=== PATIENT | female | born 1990 | race Caucasian/White ===

== ENCOUNTER 2022-09-30 22:54 | Emergency (ER) | payer MEDICARE, MEDICAID, SELFPAY ==
--- NOTE | ~2022-09-30 | US_ITS ---
EXAMINATION: US OBSTETRICAL ULTRASOUND CLINICAL INFORMATION: . Nausea, vomiting and abdominal pain. COMPARISON: None available. LMP: 08/16/2022. Gestational age by maternal dates is 6 weeks 4 days. Estimated date of delivery by maternal dates is 05/23/2023. TECHNIQUE: Transabdominal ultrasound performed. FINDINGS: There is a single intrauterine gestational sac with visible yolk sac, embryo/fetus, and cardiac activity. There is no significant subchorionic hemorrhage or hematoma. HR: 152 beats per minute. CRL (crown rump length): 1.09 cm (7 weeks and 2 days +/- 4 days). QUINN (estimated date of delivery): 05/18/2023 +/- 4 days. MATERNAL ADNEXA: The right maternal ovary measures 2.8 x 1.5 x 1.6 cm. The left maternal ovary measures 2.9 x 1.8 x 2.0 cm. There is no significant maternal adnexal mass. No maternal pelvic ascites. US/US OB <= 14 weeks fetus IMPRESSION: 1. Single intrauterine gestation with ultrasound gestational age of 7 weeks and 2 days +/- 4 days. 2. Estimated date of delivery is 05/18/2023 +/- 4 days. 3. No maternal adnexal mass or pelvic ascites.
[2022-09-30 23:00] VITALS: BP 106/45; BP 134/78; PULSE 75; PULSE 91; RESP 19; TEMP 36.9; O2SAT 99; BMI 39.1
[2022-09-30 23:35] LABS: MANUAL DIFF FLAG NO
[2022-09-30 23:36] LABS: Basophils Percent Auto 0.3 % (0-2); Eosinophils Absolute Auto 0.1 X10*3/uL (0.0-0.4); Eosinophils Percent Auto 0.6 % (0-4); Hematocrit 42.3 % (37.0-47.0); Hemoglobin 14.1 g/dl (12.0-16.0); Imm Gran Abs Auto 0.06 X10*3/uL (0.00-0.03); Imm Gran Pct Auto 0.4 % (0.0-0.4); Lymphocytes Absolute Auto 1.7 X10*3/uL (1.2-4.9); Lymphocytes Percent Auto 12.3 % (20-40); Mean Corpuscular HGB Conc 33.3 g/dl (31.0-35.0); Mean Corpuscular Hemoglobin 27.1 pg (27.0-33.0); Mean Corpuscular Volume 81.2 fL (80.0-98.0); Mean Platelet Volume 8.8 fL (9.4-12.3); Monocytes Absolute Auto 0.6 X10*3/uL (0.1-1.2); Monocytes Percent Auto 4.3 % (2-11); Neutrophils Absolute Auto 11.4 x10*3/uL (2.0-8.3); Neutrophils Percent Auto 82.1 % (45-73); Platelet Count 370 X10*3/uL (160-400); Red Blood Count 5.21 X10*6/uL (4.20-5.50); Red Cell Distribution Width 14.1 % (11.0-16.0); White Blood Count 13.9 X10*3/uL (4.8-10.8)
[2022-10-01 00:01] LABS: Alanine Aminotransferase 14 U/L (0-31); Albumin Level 4.1 g/dL (3.5-5.0); Alkaline Phosphatase 104 U/L (39-117); Anion Gap 16 (12-20); Aspartate Amino Transferase 15 U/L (5-31); Bilirubin Total 0.4 mg/dL (0.0-1.0); Blood Urea Nitrogen 8 mg/dL (9-16); Calcium 9.8 mg/dL (8.4-10.2); Carbon Dioxide 17 mmol/L (22-29); Chloride 106 mmol/L (96-108); Creatinine Clr Calc Pharmacy 134.2; Estimated Glomerular Filt Rate > 60; Glucose Random 106 mg/dL (60-115); Potassium 3.9 mmol/L (3.3-5.1); Sodium 135 mmol/L (135-145); Total Protein 7.7 g/dL (6.5-8.0)
[2022-10-01] MEDS: ondansetron HCL 4 MG/2 ML VIAL IVPUSH (00:23)
[2022-10-01] MEDS: 0.9 % Sodium Chloride 1,000 ML 999 ML IV ×2 (00:26→00:28)
--- NOTE | 2022-10-01 00:28 | ED.NAVMDI ---
HPI - Nausea/Vomiting/Diarrhea General Chief complaint: Nausea/Vomiting/Diarrhea Stated complaint: abd pain, headache, vomiting, per ems Time Seen by Provider: 09/30/22 23:05 History of Present Illness HPI Narrative: Patient is a 32-year-old female presents today approximately 5 weeks . Patient took a home test was positive. Had nausea vomiting unable to keep down fluids has abdominal cramping. Patient claims this is her 5th the 1st 4 went well. Patient denies any vaginal bleeding. She is from home. No care. No cough no congestion or upper respiratory symptoms. No pain on urination. Related Data Previous Rx's Medication Instructions Recorded ondansetron 4 mg disintegrating 4 mg PO TID PRN nausea and 10/01/22 tablet vomiting 5 days #10 tabs Allergies Allergy/AdvReac Type Severity Reaction Status Date / Time No Known Allergies Allergy Verified 10/01/22 00:02 Review of Systems Review of Systems: Positive abdominal pain Yes all other systems are reviewed and are negative [facility] Past Medical History Attestation statement: The following information was validated with the patient. Social History Social History Advance Directives: No Advance Directives Information Provided: No Physical Exam Vital Signs: Vital Signs: Last Vital Signs Temp 98.5 F 09/30/22 23:00 Pulse 75 09/30/22 23:00 Resp 19 09/30/22 23:00 BP 106/45 L 09/30/22 23:00 Pulse Ox 99 09/30/22 23:00 O2 Del Method Room Air 09/30/22 23:00 BMI result Body Mass Index 39.1 Appearance: Alert. Oriented X3. No acute distress. Eyes: Pupils equal, round and reactive to light. ENT: Pharynx normal. Neck: Normal inspection. Neck supple. No lymph nodes noted. No crepitus CVS: Normal heart rate and rhythm. Pulses normal. Normal S1 and S2 Respiratory: No respiratory distress. Breath sounds normal. No Wheezing. No rales Abdomen: Soft and nontender. No rigidity. No distention. good BS x4 Skin: Skin warm and dry. Normal skin color. Normal skin turgor. Extremities: No lower extremity edema. Neurovascular intact to all extremities. No Lacerations. No Rash Neuro: Oriented X 3. No motor deficit. No sensory deficit. Moving all extermities. No slurred speech Medications Administered Discontinued Medications Generic Name Dose Route Start Last Admin Trade Name Radha PRN Reason Stop Dose Admin Sodium Chloride 1,000 mls @ 999 mls/hr 10/01/22 00:15 10/01/22 00:26 Ns IV 10/01/22 01:15 999 mls/hr .Q1H1M DEVANTE Administration Sodium Chloride 1,000 mls @ 999 mls/hr 10/01/22 00:30 10/01/22 00:28 Ns IV 10/01/22 01:30 999 mls/hr .Q1H1M DEVANTE Administration Ondansetron HCl 4 mg 10/01/22 00:02 10/01/22 00:23 Ondansetron Hcl 4 Mg/2 Ml Vial IVPUSH 10/01/22 00:03 4 mg ONCE ONE Administration Medical Decision Making Medical Decision Making [facility] Narrative: presents today with having abdominal pain nausea vomiting unable to tolerate fluids last menstrual period about 5 weeks ago. Patient's blood type came back O-positive. No ABO incompatibility. Patient's old records here reviewed there is no old documentation noted. Patient beta hCG came back greater than 70,000. An ultrasound was ordered to rule out the possibility of ectopic. Patient has extreme nausea vomiting. The risk of dehydration greater than the risk of Zofran. This was explained to patient. Zofran and IV fluid was given. Will monitor carefully. After dose of Zofran and IV fluids patient's symptom actually improved dramatically. Awaiting ultrasound at this point Ultrasound by my interpretation shows an intrauterine . Approximately 7 weeks. Awaiting final reading from Radiology. Differential Diagnosis Differential Diagnoses: The differential diagnosis associated with the presentation includes Ectopic , hyperemesis gravidarum, UTI Admission/Observation Consideration of admission/observation: Escalation of care including admission/observation considered Symptoms seems to be improving if ultrasound is negative UA negative patient most likely can go home Lab Data [facility] Lab Attestation statement: I reviewed the patient's lab results. 09/30/22 23:31 09/30/22 23:31 Labs: Lab Results 09/30/22 09/30/22 09/30/22 Range/Units 23:31 23:31 23:31 WBC 13.9 H (4.8-10.8) X10*3/uL RBC 5.21 (4.20-5.50) X10*6/uL Hgb 14.1 (12.0-16.0) g/dl Hct 42.3 (37.0-47.0) % MCV 81.2 (80.0-98.0) fL MCH 27.1 (27.0-33.0) pg MCHC 33.3 (31.0-35.0) g/dl RDW 14.1 (11.0-16.0) % Plt Count 370 (160-400) X10*3/uL MPV 8.8 L (9.4-12.3) fL Immature Gran % (Auto) 0.4 (0.0-0.4) % Neut % (Auto) 82.1 H (45-73) % Lymph % (Auto) 12.3 L (20-40) % [place] % (Auto) 4.3 (2-11) % Eos % (Auto) 0.6 (0-4) % Baso % (Auto) 0.3 (0-2) % Lymph # (Auto) 1.7 (1.2-4.9) X10*3/uL [place] # (Auto) 0.6 (0.1-1.2) X10*3/uL Eos # (Auto) 0.1 (0.0-0.4) X10*3/uL Baso # (Auto) 0.0 (0.0-0.2) X10*3/uL Abs Immat Gran (auto) 0.06 H (0.00-0.03) X10*3/uL Absolute Neuts (auto) 11.4 H (2.0-8.3) x10*3/uL Absolute Nucleated RBC 0.000 (0.0-0.012) X10*3/uL Nucleated RBC % (auto) 0.0 (0.0-0.2) /100WBC Sodium 135 (135-145) mmol/L Potassium 3.9 (3.3-5.1) mmol/L Chloride 106 (96-108) mmol/L Carbon Dioxide 17 L (22-29) mmol/L Anion Gap 16 (12-20) BUN 8 L (9-16) mg/dL Creatinine 0.66 (0.5-1.4) mg/dL Estim Creat Clear Calc 134.2 Estimated GFR > 60 Random Glucose 106 (60-115) mg/dL Calcium 9.8 (8.4-10.2) mg/dL Total Bilirubin 0.4 (0.0-1.0) mg/dL AST 15 (5-31) U/L ALT 14 (0-31) U/L Alkaline Phosphatase 104 (39-117) U/L Total Protein 7.7 (6.5-8.0) g/dL Albumin 4.1 (3.5-5.0) g/dL Beta HCG, Quant 74578 mIU/mL Blood Type O Positive Discharge Plan Discharge Clinical Impression: Hyperemesis arising during Patient Disposition: Still a Patient Instructions: Hyperemesis Gravidarum (ED) Prescriptions: New ondansetron 4 mg tablet,disintegrating 4 mg PO TID PRN (Reason: nausea and vomiting) 5 Days Qty: 10 0RF
[2022-10-01 03:08] VITALS: BP 103/62; PULSE 73; RESP 17; TEMP 36.7; O2SAT 94
[2022-10-01 05:33] VITALS: BP 115/55; PULSE 64; RESP 18; O2SAT 97
== END 2022-10-01 05:40 | disposition home or self-care (01) ==
PROVIDERS: Emergency Provider Emergency Medicine Emergency Medical Services
DX: O26.91 Pregnancy related conditions, unspecified, first trimester (principal); R11.2 Nausea with vomiting, unspecified; R10.13 Epigastric pain; R19.7 Diarrhea, unspecified; Z3A.01 Less than 8 weeks gestation of pregnancy; Z79.899 Other long term (current) drug therapy
CPT/HCPCS: 36415; 76801; 80053; 84702; 85025; 86900; 86901; 96361; 96374; 99284; J2405

== ENCOUNTER 2022-10-05 07:54 | Emergency (ER) | payer MEDICARE, MEDICAID, SELFPAY ==
--- NOTE | ~2022-10-05 | CT_ITS ---
Unenhanced CT of the head and cervical spine, 10/06/2022. CT/CT cervical spine wo IV con IMPRESSION: 8 week patient status post fall/head trauma, question seizure TECHNIQUE: Continuous helical imaging obtained through the head and cervical spine without IV contrast. Reconstructed images performed in the coronal and sagittal planes. This CT examination was performed using dose optimization techniques as appropriate, variously including the following: *Automated exposure control *Adjustment of mA and/or kV according to patient size (this includes techniques or standardized protocols for targeted exams where dose is matched to indication/reason for exam; i.e. extremities or head) *Use of iterative reconstruction technique FINDINGS: Head: Intracranial structures are normal in appearance. Pierson-white matter differentiation is preserved. No intracranial hemorrhage, extra-axial fluid collections, cranial fractures or soft tissue hematomas are identified. Bilateral frontal, ethmoid annual, sphenoid and maxillary mucosal thickening seen. Right inferior nasal turbinate is thickened. Mastoids are clear. Intraorbital structures are unremarkable. Cervical spine: Slight cervical lordotic reversal. Vertebral body and disc spaces are preserved. Trace anterolisthesis C4 on C5 No fracture or subluxation. No spinal or neuroforaminal stenoses. Soft tissues are unremarkable with no hematomas. No pathologic lymphadenopathy. Unremarkable thyroid. Clear lung apices. IMPRESSION: No acute intrathoracic cranial pathology status post trauma. Mild cervical lordotic reversal, question spasm. No acute posttraumatic cervical spine pathology. Pansinusitis.
--- NOTE | ~2022-10-05 | US_ITS ---
EXAMINATION: US OBSTETRICAL ULTRASOUND CLINICAL INFORMATION: Abdominal pain and seizure, unknown trauma COMPARISON: 10/01/2022 LMP: 08/16/2022. Gestational age by maternal dates is 7 weeks 1 day. Estimated date of delivery by maternal dates is 05/23/2023. TECHNIQUE: Transabdominal imaging performed. FINDINGS: There is a single intrauterine gestational sac with visible yolk sac, embryo/fetus, and cardiac activity. There is no significant subchorionic hemorrhage or hematoma. HR: 147 beats per minute. CRL (crown rump length): 1.55 cm QUNIN (estimated date of delivery): 26 +/- 4 days. MATERNAL ADNEXA: The right maternal ovary measures 1.8 x 1.5 x 1.5 cm. Previously 2.8 x 1.5 0.6 cm. The left maternal ovary measures 2.7 x 1.3 x 1.8 cm. Previously 2.9 x 1.8 x 2.0 cm. There is no significant maternal adnexal mass. No maternal pelvic ascites. US/US OB <= 14 weeks fetus IMPRESSION: 1. Single intrauterine gestation with ultrasound gestational age of 8 weeks 0 days +/- 4 days. 2. Estimated date of delivery is 05/17/2023 +/- 4 days. 3. No maternal adnexal mass or pelvic ascites.
--- NOTE | ~2022-10-05 | CT_ITS ---
Unenhanced CT of the head and cervical spine, 10/06/2022. CT/CT head/brain wo IV con IMPRESSION: 8 week patient status post fall/head trauma, question seizure TECHNIQUE: Continuous helical imaging obtained through the head and cervical spine without IV contrast. Reconstructed images performed in the coronal and sagittal planes. This CT examination was performed using dose optimization techniques as appropriate, variously including the following: *Automated exposure control *Adjustment of mA and/or kV according to patient size (this includes techniques or standardized protocols for targeted exams where dose is matched to indication/reason for exam; i.e. extremities or head) *Use of iterative reconstruction technique FINDINGS: Head: Intracranial structures are normal in appearance. Pierson-white matter differentiation is preserved. No intracranial hemorrhage, extra-axial fluid collections, cranial fractures or soft tissue hematomas are identified. Bilateral frontal, ethmoid annual, sphenoid and maxillary mucosal thickening seen. Right inferior nasal turbinate is thickened. Mastoids are clear. Intraorbital structures are unremarkable. Cervical spine: Slight cervical lordotic reversal. Vertebral body and disc spaces are preserved. Trace anterolisthesis C4 on C5 No fracture or subluxation. No spinal or neuroforaminal stenoses. Soft tissues are unremarkable with no hematomas. No pathologic lymphadenopathy. Unremarkable thyroid. Clear lung apices. IMPRESSION: No acute intrathoracic cranial pathology status post trauma. Mild cervical lordotic reversal, question spasm. No acute posttraumatic cervical spine pathology. Pansinusitis.
[2022-10-05 08:02] VITALS: BP 107/59; PULSE 82; RESP 20; TEMP 36.7; O2SAT 95
[2022-10-05 08:04] VITALS: BP 109/57; BP 114/78; PULSE 67; PULSE 90; RESP 16; TEMP 36.7; O2SAT 100; O2SAT 97; BMI 40.0
--- NOTE | 2022-10-05 08:13 | ED_ITS ---
HPI - Seizure General Chief Complaint: Seizure Stated Complaint: Seizure Time Seen by Provider: 10/05/22 08:03 Source: patient, RN notes reviewed and old records reviewed History of Present Illness HPI Narrative: 32-year-old female with a past medical history of seizures on Keppra, at about 7.5 weeks gestation presenting to the ED complaining of suspected seizure this morning while in bed. States has been unable to tolerate her Keppra secondary to nausea over the past 2-3 days, woke up this morning feeling like she had a seizure also with noted urinary incontinence and tongue biting. Patient reports headache, abrasion to right eye and abdominal pain. Has not yet had care, 1st OB appointment in October. Denies vision change/ loss, vomiting/ diarrhea, vaginal bleeding / discharge, CP/SOB, neck/back pain MD complaint: seizure Related Data Previous Rx's Medication Instructions Recorded ondansetron 4 mg disintegrating 4 mg PO TID PRN nausea and 10/01/22 tablet vomiting 5 days #10 tabs amoxicillin 500 mg capsule 500 mg PO Q8H 7 days #21 caps 10/05/22 doxylamine succinate 25 mg tablet 25 mg PO BEDTIME PRN nausea and 10/05/22 vomiting #14 tabs pyridoxine (vitamin B6) 25 mg 25 mg PO TID PRN nausea and 10/05/22 tablet vomiting #20 tabs Allergies Allergy/AdvReac Type Severity Reaction Status Date / Time No Known Allergies Allergy Verified 10/01/22 00:02 Review of Systems Review of Systems: Constitutional: No Fever, No Chills, No Fatigue, No Malaise ENT/Mouth: +tongue biting, No Ear Pain, No Nasal Congestion,No sore throat, No Rhinorrhea, No Swallowing Difficulty Eyes: + Eye Pain, +Swelling, No Redness, No Foreign Body, No Discharge, No Vision Changes Cardiovascular: No Chest Pain, No SOB, No Edema, No Palpitations Respiratory: No Cough, No Sputum, No Dyspnea Gastrointestinal: + Nausea, No Vomiting, No Diarrhea, No Constipation, + Abdominal pain Genitourinary: No vaginal d/c, No irregular bleeding, No Dysuria, No Urinary Frequency, No Hematuria, +Urinary Incontinence, No Flank Pain Musculoskeletal: No joint pain, No Myalgias, No Joint Swelling Skin: No Skin Lesions, No rash Neuro: No Weakness, No Loss of Consciousness, No Dizziness, + Headache Yes all other systems are reviewed and are negative Constitutional: Constitutional: Reports as per HPI Neurologic: Denies Abnormal speech present [facility] Past Medical History Attestation statement: The following information was validated with the patient. Source: old records reviewed Social History Social History Alcohol intake: never Substance Use Type: Marijuana Physical Exam Vital Signs: Vital Signs: Last Vital Signs Temp 98.1 F 10/05/22 08:04 Pulse 67 10/05/22 08:04 Resp 16 10/05/22 08:04 BP 109/57 L 10/05/22 08:04 Pulse Ox 97 10/05/22 08:04 O2 Del Method Room Air 10/05/22 08:04 BMI result Body Mass Index 40.0 Const: General: cooperative, healthy appearing, no acute distress and alert Orientation/consciousness: patient oriented x3 Limitations: no limitations HEENT: Head: Yes normal to inspection and Yes atraumatic Ears: hearing grossly normal bilaterally General nose exam: Normal external nose present Face and sinus: Yes normal facial exam Throat: Yes posterior oropharynx normal and Yes uvula midline Eyes: Other: + right upper and lower eyelid swelling with superficial abrasions and slight ecchymosis. No laceration. No evidence of globe rupture. EOMs intact without entrapment or discomfort. No palpable step-off General: appearance normal, both eyes and all related structures Pupils: Equal, round and reactive pupils present EOM: EOMs intact bilaterally Neck: Neck: Yes normal visual inspection and Yes no meningeal signs Resp: Effort & Inspection: normal respiratory effort and no respiratory distress Auscultation: clear to auscultation bilaterally Cardio: Rate: regular rate Heart sounds: S1 normal heart sound present and S2 normal heart sound present GI: Inspection: Yes normal to inspection Palpation (GI): Soft to palpation, Tenderness to palpation present (GI) ( diffusely, no rebound or guarding), no guarding and not rigid : General: Yes no CVA tenderness Back/Spine/Pelvis: Other: No midline cervical/thoracic/lumbar spinous tenderness/step-off or deformity Back: no CVA tenderness Skin: Rashes: no rashes Wounds: no wounds Neuro: General: patient oriented x3, tone normal, moves all extremities, no meningeal signs, no focal motor deficits and CN's II-XI intact bilaterally Cranial nerves: Yes CN's II-XII intact bilaterally and Yes Equal, round and reactive pupils present Cognition (Neuro): normal cognition Speech: No Abnormal speech present Gait exam (Neuro): Normal gait present Motor exam (neuro): 5/5 motor strength present throughout and no tremor noted Extrem: General: Yes normal to inspection Course Course Course Narrative: -Consulted OBGYN Dr. Mcrae about Keppra as is category C in , risk of congenital anomalies exists however is low. Risks discussed with patient, patient admits she was on Keppra for previous . Will consult Neurology for further recommendations >> consulted Neurology, Dr. Tabares who stated he would continue patient's Keppra although recommends follow-up with her neurologist/ patient's personal Neurology recommendations - no leukocytosis. Lactic acid WNL, labs otherwise reassuring. Beta quant greater than 96,000 - UA not infected CT head/brain wo IV/CT cervical spine wo IV con IMPRESSION: No acute intrathoracic cranial pathology status post trauma. Mild cervical lordotic reversal, question spasm. No acute posttraumatic cervical spine pathology. Pansinusitis. US OB <= 14 weeks fetus IMPRESSION: 1. Single intrauterine gestation with ultrasound gestational age of? 8 weeks 0 days +/- 4 days. 2. Estimated date of delivery is 05/17/2023 +/- 4 days. 3. No maternal adnexal mass or pelvic ascites. > patient has been sleeping comfortably in the ED since arrival, is tolerating p.o. Admits to take Zofran currently home for nausea, will add additional medications. Discussed needing close follow-up with her OBGYN as well as her neurologist. Results discussed with patient including worrisome signs and symptoms and strict return precautions, and when to return to the emergency department. They verbalized understanding and feel safe for discharge at this time. Medications Administered Discontinued Medications Generic Name Dose Route Start Last Admin Trade Name Radha PRN Reason Stop Dose Admin Acetaminophen 650 mg 10/05/22 08:31 10/05/22 09:23 Acetaminophen 325 Mg Tablet PO 10/05/22 08:32 650 mg ONCE ONE Administration Diphenhydramine HCl 12.5 mg 10/05/22 08:46 10/05/22 09:08 Diphenhydramine Hcl 50 Mg/Ml Vial IVPUSH 10/05/22 08:47 12.5 mg ONCE ONE Administration Fluorescein Sodium 1 strip 10/05/22 08:20 10/05/22 10:29 Fluorescein Sodium Strip EYE-RIGHT 10/05/22 08:21 1 strip ONCE ONE Administration Sodium Chloride 1,000 mls @ 999 mls/hr 10/05/22 08:15 10/05/22 11:05 Ns IV 10/05/22 09:15 Infused .Q1H1M DEVANTE Infusion Levetiracetam 1,000 mg in 100 mls @ 400 mls/hr 10/05/22 08:49 10/05/22 09:41 Keppra IV 10/05/22 09:03 Infused ONCE ONE Infusion Ondansetron HCl 4 mg 10/05/22 15:06 10/05/22 15:11 Ondansetron Hcl 4 Mg/2 Ml Vial IVPUSH 10/05/22 15:07 4 mg ONCE ONE Administration Pyridoxine HCl 25 mg 10/05/22 08:13 10/05/22 09:41 Pyridoxine Hcl (Vitamin B6) 50 Mg Tablet PO 10/05/22 08:14 25 mg ONCE ONE Administration Tetracaine HCl 1 drop 10/05/22 08:20 10/05/22 10:29 Tetracaine Hcl/Pf 0.5% Oph Sommer 4 Ml Drops EYE-RIGHT 10/05/22 08:21 1 drop ONCE ONE Administration Medical Decision Making Medical Decision Making MDM Narrative: 32-year-old female with a past medical history of seizures on Keppra, at about 7.5 weeks gestation presenting to the ED complaining of suspected seizure this morning while in bed. On exam vital signs stable NAD nontoxic appearing, physical exam as above with right periorbital swelling with superficial abrasions, no other evidence of trauma, no midline spinous tenderness, abdomen soft diffusely tender, no rebound or guarding. Patient denies other -related complaints. Concern for seizure secondary to medication noncompliance/intolerability vs dehydration/hyperemesis vs metabolic abnormality vs ICH. Lower suspicion for appendicitis/diverticulitis plan: EKG, labs, UA, head/C-spine CT (risk of radiation discussed with patient although agreeable), OB ultrasound, fluorescein stain to right eye, IVF, re- evaluate, Consult Ob/neurology Please refer to course for remaining clinical decision making, interpretation of labs/imaging results, and discussions with consultants and/or family members. Differential Diagnosis Differential Diagnoses: The differential diagnosis associated with the presentation includes As above Admission/Observation Consideration of admission/observation: Escalation of care including admission/observation considered Consult Healthcare Provider Management of the patient was discussed with: Director Of Business Operations Lab Data MDM Lab Attestation statement: I reviewed the patient's lab results. 10/05/22 08:40 10/05/22 08:40 Labs: Lab Results 10/05/22 10/05/22 10/05/22 Range/Units 08:40 08:40 08:40 WBC 10.5 (4.8-10.8) X10*3/uL RBC 5.07 (4.20-5.50) X10*6/uL Hgb 13.7 (12.0-16.0) g/dl Hct 40.9 (37.0-47.0) % MCV 80.7 (80.0-98.0) fL MCH 27.0 (27.0-33.0) pg MCHC 33.5 (31.0-35.0) g/dl RDW 13.9 (11.0-16.0) % Plt Count 387 (160-400) X10*3/uL MPV 8.9 L (9.4-12.3) fL Immature Gran % (Auto) 0.4 (0.0-0.4) % Neut % (Auto) 81.8 H (45-73) % Lymph % (Auto) 11.4 L (20-40) % [place] % (Auto) 4.8 (2-11) % Eos % (Auto) 1.2 (0-4) % Baso % (Auto) 0.4 (0-2) % Lymph # (Auto) 1.2 (1.2-4.9) X10*3/uL [place] # (Auto) 0.5 (0.1-1.2) X10*3/uL Eos # (Auto) 0.1 (0.0-0.4) X10*3/uL Baso # (Auto) 0.0 (0.0-0.2) X10*3/uL Abs Immat Gran (auto) 0.04 H (0.00-0.03) X10*3/uL Absolute Neuts (auto) 8.6 H (2.0-8.3) x10*3/uL Absolute Nucleated RBC 0.000 (0.0-0.012) X10*3/uL Nucleated RBC % (auto) 0.0 (0.0-0.2) /100WBC PT (11.1-13.3) SEC INR (0.9-1.1) Sodium 135 (135-145) mmol/L Potassium 4.0 (3.3-5.1) mmol/L Chloride 105 (96-108) mmol/L Carbon Dioxide 23 (22-29) mmol/L Anion Gap 11 L (12-20) BUN 8 L (9-16) mg/dL Creatinine 0.70 (0.5-1.4) mg/dL Estim Creat Clear Calc 128.2 Estimated GFR > 60 Random Glucose 118 H (60-115) mg/dL Lactic Acid 1.7 (0.5-2.0) mmol/L Calcium 9.4 (8.4-10.2) mg/dL Magnesium 2.2 (1.6-2.6) mg/dL Total Bilirubin 0.2 (0.0-1.0) mg/dL Direct Bilirubin < 0.2 (0.0-0.5) mg/dL AST 11 (5-31) U/L ALT 13 (0-31) U/L Alkaline Phosphatase 96 (39-117) U/L Total Protein 7.5 (6.5-8.0) g/dL Albumin 4.0 (3.5-5.0) g/dL Beta HCG, Quant 53682 mIU/mL Urine Color Urine Appearance Urine pH (5.0-9.0) Ur Specific Lott (1.005-1.025) Urine Protein (Neg-Trace) mg/dL Urine Glucose (UA) (Negative) mg/dL Urine Ketones (Negative) mg/dL Urine Blood (Negative) Urine Nitrite (Negative) Ur Leukocyte Esterase (Negative) Urine RBC (0-2) /HPF Urine WBC (0-5) /HPF Ur Squamous Epith Cells (0-2) /HPF Urine Bacteria (None Seen) Hyaline Casts (0-2) /LPF Urine Opiates Screen (Not Detect) Urine Fentanyl Screen (Not Detect) Ur Barbiturates Screen (Not Detect) Ur Phencyclidine Scrn (Not Detect) Ur Amphetamines Screen (Not Detect) U Benzodiazepines Scrn (Not Detect) Urine Cocaine Screen (Not Detect) U Marijuana (THC) Screen (Not Detect) 10/05/22 10/05/22 10/05/22 Range/Units 08:41 13:26 13:26 WBC (4.8-10.8) X10*3/uL RBC (4.20-5.50) X10*6/uL Hgb (12.0-16.0) g/dl Hct (37.0-47.0) % MCV (80.0-98.0) fL MCH (27.0-33.0) pg MCHC (31.0-35.0) g/dl RDW (11.0-16.0) % Plt Count (160-400) X10*3/uL MPV (9.4-12.3) fL Immature Gran % (Auto) (0.0-0.4) % Neut % (Auto) (45-73) % Lymph % (Auto) (20-40) % [place] % (Auto) (2-11) % Eos % (Auto) (0-4) % Baso % (Auto) (0-2) % Lymph # (Auto) (1.2-4.9) X10*3/uL [place] # (Auto) (0.1-1.2) X10*3/uL Eos # (Auto) (0.0-0.4) X10*3/uL Baso # (Auto) (0.0-0.2) X10*3/uL Abs Immat Gran (auto) (0.00-0.03) X10*3/uL Absolute Neuts (auto) (2.0-8.3) x10*3/uL Absolute Nucleated RBC (0.0-0.012) X10*3/uL Nucleated RBC % (auto) (0.0-0.2) /100WBC PT 13.6 H (11.1-13.3) SEC INR 1.1 (0.9-1.1) Sodium (135-145) mmol/L Potassium (3.3-5.1) mmol/L Chloride (96-108) mmol/L Carbon Dioxide (22-29) mmol/L Anion Gap (12-20) BUN (9-16) mg/dL Creatinine (0.5-1.4) mg/dL Estim Creat Clear Calc Estimated GFR Random Glucose (60-115) mg/dL Lactic Acid (0.5-2.0) mmol/L Calcium (8.4-10.2) mg/dL Magnesium (1.6-2.6) mg/dL Total Bilirubin (0.0-1.0) mg/dL Direct Bilirubin (0.0-0.5) mg/dL AST (5-31) U/L ALT (0-31) U/L Alkaline Phosphatase (39-117) U/L Total Protein (6.5-8.0) g/dL Albumin (3.5-5.0) g/dL Beta HCG, Quant mIU/mL Urine Color Yellow Urine Appearance Clear Urine pH 6.0 (5.0-9.0) Ur Specific Lott 1.020 (1.005-1.025) Urine Protein Negative (Neg-Trace) mg/dL Urine Glucose (UA) Negative (Negative) mg/dL Urine Ketones 80 (Negative) mg/dL Urine Blood Negative (Negative) Urine Nitrite Negative (Negative) Ur Leukocyte Esterase Small (1+) H (Negative) Urine RBC 0-2 (0-2) /HPF Urine WBC 0-5 (0-5) /HPF Ur Squamous Epith Cells 3-5 (0-2) /HPF Urine Bacteria Trace (None Seen) Hyaline Casts 0-2 (0-2) /LPF Urine Opiates Screen Not Detected (Not Detect) Urine Fentanyl Screen Not Detected (Not Detect) Ur Barbiturates Screen Not Detected (Not Detect) Ur Phencyclidine Scrn Not Detected (Not Detect) Ur Amphetamines Screen Not Detected (Not Detect) U Benzodiazepines Scrn Not Detected (Not Detect) Urine Cocaine Screen Not Detected (Not Detect) U Marijuana (THC) Screen POSITIVE H (Not Detect) Independent Interpretation I performed an independent interpretation of an: EKG Radiology Impression Discussion of test interpretation with radiology: I have reviewed the radiologist's reading. Independent Historian Clinical information obtained from an independent historian. History obtained from or confirmed by: EMS External Record Review External record reviewed: Inpatient record, Office record, Outpatient record, Prior outpatient labs, Prior outpatient radiology, Primary care record and Outside ED record Tests considered The following testing was considered but not selected: As above Prescription Management I considered prescription management with: Pain Medication Chronic Conditions Patient?s care impacted by: Other ( seizures) Discharge Plan Discharge Clinical Impression: Seizure disorder during in first trimester, Pansinusitis Patient Disposition: Home, Self-Care Instructions: Epilepsy During the Childbearing Years (ED) Additional Instructions: Your ultrasound shows gestational age of 8 weeks and 0 days with an estimated delivery of 05/17/2023 please continue to take her Keppra at home this is very important, Doxylamine and vitamin B6 will help with her nausea if you are unable to eat or drink, persistent nausea/vomiting or your unable to take her prescribed medications return to the ED PLEASE CALL YOUR NEUROLOGIST FOR CLOSE FOLLOW-UP AND MEDICATION RECOMMENDATIONS PERTAINING TO HER KEPPRA WELL YOUR OBGYN you also have a sinus infection, amoxicillin is an antibiotic please take as prescribed Prescriptions: New pyridoxine (vitamin B6) 25 mg tablet 25 mg PO TID PRN (Reason: nausea and vomiting) Qty: 20 0RF doxylamine succinate 25 mg tablet 25 mg PO BEDTIME PRN (Reason: nausea and vomiting) Qty: 14 0RF amoxicillin 500 mg capsule 500 mg PO Q8H 7 Days Qty: 21 0RF No Action ondansetron 4 mg tablet,disintegrating 4 mg PO TID PRN (Reason: nausea and vomiting) 5 Days Qty: 10 0RF Referrals: [facility] [place] Group] [facility] [place] [facility] [place]Provider Group] Interventions: ED Discharge Assessment Last Done: 10/05/22 16:00 Discharge Date/Time: 10/05/22 16:01
--- NOTE | 2022-10-05 08:13 | ECG_ITS ---
Test Reason : siezure Blood Pressure : / mmHG Vent. Rate : 070 BPM Atrial Rate : 070 BPM P-R Int : 172 ms QRS Dur : 082 ms QT Int : 418 ms P-R-T Axes : 037 053 025 degrees QTc Int : 451 ms Normal sinus rhythm with sinus arrhythmia Possible Left atrial enlargement Borderline ECG No previous ECGs available Referred By: Allison Floyd Electronically Signed By:ZACH VARGAS
--- NOTE | 2022-10-05 08:26 | PM.GYNCN ---
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 States has been unable to tolerate her Keppra secondary to nausea over the past 2-3 days, woke up this morning feeling like she had a seizure also with noted urinary incontinence and tongue biting.? Patient reports headache, abrasion to right eye and abdominal pain.? Has not yet had care, 1st OB appointment in October.? Denies vision change/ loss, vomiting/ diarrhea, vaginal bleeding / discharge, CP/SOB, neck/back pain. No pelvic pain or vaginal bleeding cc:: CC: OB [facility] Social History Social History Alcohol intake: never Smoked in Last 30 Days: Yes Use of substances other than those prescribed or required for medical reasons: Yes Substance Use Type: Marijuana Substance Use Frequency: Daily Last Used Substance: Hours (ago) Advance Directives: Yes Advance Directives Information Provided: Yes Advance Directives on File: No Patient : Yes Meds Allergies Allergy/AdvReac Type Severity Reaction Status Date / Time No Known Allergies Allergy Verified 10/01/22 00:02 Active Medications: Current Medications Sodium Chloride (Ns) 1,000 mls @ 999 mls/hr IV .Q1H1M DEVANTE Stop: 10/05/22 09:15 HYDRAULIC PRESS SERVICER Physical Exam Vitals Vital signs: Temp Pulse Resp BP Pulse Ox O2 Del Method 98.1 F 67 16 109/57 L 97 Room Air 10/05/22 08:04 10/05/22 08:04 10/05/22 08:04 10/05/22 08:04 10/05/22 08:04 10/05/22 08:04 BMI result Body Mass Index 40.0 HYDRAULIC PRESS SERVICER - Results Labs 10/05/22 08:40 10/05/22 08:40 Assessment and Plan (1) Seizure disorder during in first trimester: Status: Acute Discussed with ALIX Bhakta in the emergency room the following: Levetiracetam use in is associated with risks of congenital anomalies but its low , and it is cat C. Benefits versus risks need to be considered. recommend consult with neurology for seizure management . I spent a total of 20 minutes reviewing the chart, communicating with the emergency room provider and documenting in the medical record Time Spent With Patient Time: Total time managing care of this patient today ____ minutes.
[2022-10-05] MEDS: 0.9 % Sodium Chloride 1,000 ML 999 ML IV (08:41)
--- NOTE | 2022-10-05 08:48 | PC.NURSE ---
Pt taken to CT.
[2022-10-05 09:02] LABS: Basophils Percent Auto 0.4 % (0-2); Eosinophils Absolute Auto 0.1 X10*3/uL (0.0-0.4); Eosinophils Percent Auto 1.2 % (0-4); Hematocrit 40.9 % (37.0-47.0); Hemoglobin 13.7 g/dl (12.0-16.0); Imm Gran Abs Auto 0.04 X10*3/uL (0.00-0.03); Imm Gran Pct Auto 0.4 % (0.0-0.4); Lymphocytes Absolute Auto 1.2 X10*3/uL (1.2-4.9); Lymphocytes Percent Auto 11.4 % (20-40); MANUAL DIFF FLAG NO; Mean Corpuscular HGB Conc 33.5 g/dl (31.0-35.0); Mean Corpuscular Volume 80.7 fL (80.0-98.0); Mean Platelet Volume 8.9 fL (9.4-12.3); Monocytes Absolute Auto 0.5 X10*3/uL (0.1-1.2); Monocytes Percent Auto 4.8 % (2-11); Neutrophils Absolute Auto 8.6 x10*3/uL (2.0-8.3); Neutrophils Percent Auto 81.8 % (45-73); Platelet Count 387 X10*3/uL (160-400); Red Blood Count 5.07 X10*6/uL (4.20-5.50); Red Cell Distribution Width 13.9 % (11.0-16.0); White Blood Count 10.5 X10*3/uL (4.8-10.8)
[2022-10-05 09:08] LABS: INTERNATIONAL NORM RATIO 1.1 (0.9-1.1); Prothrombin Time 13.6 SEC (11.1-13.3)
[2022-10-05] MEDS: diphenhydrAMINE HCL 50 MG/ML VIAL 12.5 MG IVPUSH (09:08)
[2022-10-05] MEDS: levETIRAcetam in NaCl (iso-os) 1,000 MG/100 ML PIGGYBACK 400 MG IV (09:11)
[2022-10-05 09:20] LABS: Lactic Acid 1.7 mmol/L (0.5-2.0)
[2022-10-05] MEDS: Acetaminophen 325 MG TABLET 650 MG PO (09:23)
[2022-10-05 09:31] LABS: Alanine Aminotransferase 13 U/L (0-31); Alkaline Phosphatase 96 U/L (39-117); Anion Gap 11 (12-20); Aspartate Amino Transferase 11 U/L (5-31); Bilirubin Direct < 0.2 mg/dL (0.0-0.5); Bilirubin Total 0.2 mg/dL (0.0-1.0); Blood Urea Nitrogen 8 mg/dL (9-16); Calcium 9.4 mg/dL (8.4-10.2); Carbon Dioxide 23 mmol/L (22-29); Chloride 105 mmol/L (96-108); Creatinine Clr Calc Pharmacy 128.2; Estimated Glomerular Filt Rate > 60; Glucose Random 118 mg/dL (60-115); Magnesium 2.2 mg/dL (1.6-2.6); Sodium 135 mmol/L (135-145); Total Protein 7.5 g/dL (6.5-8.0)
[2022-10-05] MEDS: Pyridoxine HCl (Vitamin B6) 50 MG TABLET 25 MG PO (09:41)
[2022-10-05] MEDS: Tetracaine HCl/PF 0.5% Oph Sol 4 ML DROPS 1 DROP EYE-RIGHT (10:29)
[2022-10-05] MEDS: Fluorescein Sodium STRIP 1 STRIP EYE-RIGHT (10:29)
--- NOTE | 2022-10-05 11:44 | PC.NURSE ---
Pt is currently sleeping, no apparent pain noted. Call malave with in reach.
[2022-10-05 13:32] LABS: Appearance Urine Clear; Color Urine Yellow; Glucose Urine UA Negative (Negative); Leukocyte Esterase Urine Small (1+) (Negative); Nitrite Urine Negative (Negative); UMIC TRIGGER UACC YES; Urine Blood Negative (Negative); Urine Ketones 80 mg/dL (Negative); Urine Protein Negative (Neg-Trace)
[2022-10-05 14:02] LABS: Bacteria Urine Trace (None Seen); Hyaline Casts Urine 0-2 /LPF (0-2); RBC Urine 0-2 /HPF (0-2); UACC Culture Trigger YES; WBC Urine 0-5 /HPF (0-5)
[2022-10-05] MEDS: ondansetron HCL 4 MG/2 ML VIAL IVPUSH (15:11)
[2022-10-05 15:28] LABS: Amphetamine Screen Urine Not Detected (Not Detect); Barbiturates, Urine Not Detected (Not Detect); Benzodiazepines Screen Urine Not Detected (Not Detect); Cannabinoid Screen Urine POSITIVE (Not Detect); Cocaine Screen Urine Not Detected (Not Detect); Fentanyl, urine Not Detected (Not Detect); Opiate Screen Urine Not Detected (Not Detect); Phencyclidine Screen Urine Not Detected (Not Detect)
== END 2022-10-05 16:01 | disposition home or self-care (01) ==
PROVIDERS: Physician Assistant; Emergency Provider Emergency Medicine
DX: O99.351 Diseases of the nervous system complicating pregnancy, first trimester (principal); G40.909 Epilepsy, unspecified, not intractable, without status epilepticus; O26.891 Other specified pregnancy related conditions, first trimester; J32.4 Chronic pansinusitis; R10.9 Unspecified abdominal pain; O99.321 Drug use complicating pregnancy, first trimester; F12.90 Cannabis use, unspecified, uncomplicated; Z3A.08 8 weeks gestation of pregnancy; Z79.899 Other long term (current) drug therapy
CPT/HCPCS: 36415; 70450; 72125; 76801; 80048; 80076; 80307; 81001; 83605; 83735; 84702; 85025; 85610; 87086; 93005; 96361; 96374; 96375; 99284; 99285; J1200; J1953; J2405

== ENCOUNTER → 2022-10-05 08:38 | Outpatient (BNV) | payer MEDICARE, MEDICAID, SELFPAY | PROVIDERS: Emergency Provider Emergency Medicine; Visit Provider Obstetrics & Gynecology | DX: O99.351 Diseases of the nervous system complicating pregnancy, first trimester (principal); G40.909 Epilepsy, unspecified, not intractable, without status epilepticus | CPT/HCPCS: 99283 ==

== ENCOUNTER 2022-10-29 07:50 | Emergency (ER) | payer MEDICARE, MEDICAID, SELFPAY ==
[2022-10-29 08:04] VITALS: BP 105/53; PULSE 73; RESP 22; TEMP 36.8; O2SAT 95; BMI 41.5
[2022-10-29 08:05] VITALS: BP 128/84; PULSE 86; O2SAT 98
[2022-10-29 08:19] LABS: MANUAL DIFF FLAG NO
[2022-10-29 08:22] LABS: Basophils Percent Auto 0.4 % (0-2); Eosinophils Absolute Auto 0.4 X10*3/uL (0.0-0.4); Eosinophils Percent Auto 4.4 % (0-4); Hematocrit 37.6 % (37.0-47.0); Hemoglobin 12.6 g/dl (12.0-16.0); Imm Gran Abs Auto 0.03 X10*3/uL (0.00-0.03); Imm Gran Pct Auto 0.4 % (0.0-0.4); Lymphocytes Absolute Auto 1.7 X10*3/uL (1.2-4.9); Lymphocytes Percent Auto 20.7 % (20-40); Mean Corpuscular HGB Conc 33.5 g/dl (31.0-35.0); Mean Corpuscular Hemoglobin 27.3 pg (27.0-33.0); Mean Corpuscular Volume 81.6 fL (80.0-98.0); Mean Platelet Volume 8.6 fL (9.4-12.3); Monocytes Absolute Auto 0.4 X10*3/uL (0.1-1.2); Monocytes Percent Auto 5.4 % (2-11); Neutrophils Absolute Auto 5.6 x10*3/uL (2.0-8.3); Neutrophils Percent Auto 68.7 % (45-73); Platelet Count 378 X10*3/uL (160-400); Red Blood Count 4.61 X10*6/uL (4.20-5.50); Red Cell Distribution Width 14.2 % (11.0-16.0); White Blood Count 8.1 X10*3/uL (4.8-10.8)
[2022-10-29] MEDS: ondansetron HCL 4 MG/2 ML VIAL IVPUSH (08:25)
[2022-10-29] MEDS: 0.9 % Sodium Chloride 1,000 ML 999 ML IV ×2 (08:26→08:51)
[2022-10-29 08:44] LABS: Alanine Aminotransferase 12 U/L (0-31); Albumin Level 3.6 g/dL (3.5-5.0); Alkaline Phosphatase 79 U/L (39-117); Anion Gap 9 (12-20); Aspartate Amino Transferase 13 U/L (5-31); Bilirubin Total 0.4 mg/dL (0.0-1.0); Blood Urea Nitrogen 8 mg/dL (9-16); Carbon Dioxide 22 mmol/L (22-29); Chloride 108 mmol/L (96-108); Creatinine Clr Calc Pharmacy 147.8; Estimated Glomerular Filt Rate > 60; Glucose Random 118 mg/dL (60-115); Lipase 10 U/L (8-78); Potassium 3.7 mmol/L (3.3-5.1); Sodium 135 mmol/L (135-145); Total Protein 6.6 g/dL (6.5-8.0)
--- NOTE | 2022-10-29 08:49 | ED.NAVMDI ---
HPI - Nausea/Vomiting/Diarrhea General Chief complaint: Nausea/Vomiting/Diarrhea Stated complaint: vomiting and diarrhea x 3 days, per ems Time Seen by Provider: 10/29/22 08:15 Source: patient and old records reviewed Mode of arrival: ambulatory Limitations: no limitations History of Present Illness HPI Narrative: 32 yo female states she is 3.5 months no OB yet due to recently moving here from [place]. She states she is taking zofran for hyperemesis was seen her for same recently. She denies vaginal bleeding. Had similar issue with her daughter who is 1. She does have hx of seizures and has not been able to take her keppra 250mg. At this time her vomiting is worse x 3 days and she cannot keep anything down and she is exhausted. No diarrhea hx of similar presentation in the past. MD elicited complaint: nausea and vomiting Pertinent past history: other (hyperemesis) Onset (ago): day(s) (3) Description of vomiting: watery and bilious Associated nausea: Yes Associated abdominal pain: No Severity: moderate Exacerbating factors: eating Relieving factors: none Context: other (hx of similar episodes) Associated symptoms: malaise, nausea/vomiting and weakness Treatment prior to arrival: other (ran out of her zofran) Related Data Previous Rx's Medication Instructions Recorded ondansetron 4 mg disintegrating 4 mg PO TID PRN nausea and 10/01/22 tablet vomiting 5 days #10 tabs amoxicillin 500 mg capsule 500 mg PO Q8H 7 days #21 caps 10/05/22 doxylamine succinate 25 mg tablet 25 mg PO BEDTIME PRN nausea and 10/05/22 vomiting #14 tabs pyridoxine (vitamin B6) 25 mg 25 mg PO TID PRN nausea and 10/05/22 tablet vomiting #20 tabs nitrofurantoin 100 mg PO BID 7 days #14 caps 10/29/22 monohydrate/macrocrystals 100 mg capsule (Macrobid) promethazine 25 mg tablet 25 mg PO TID PRN nausea and 10/29/22 vomiting #30 tabs Allergies Allergy/AdvReac Type Severity Reaction Status Date / Time No Known Allergies Allergy Verified 10/29/22 08:08 Review of Systems Review of Systems: Constitutional : No Weight loss, No Fever, No Chills ENT/Mouth : No sore throat, No Rhinorrhea Eyes: No Swelling, No Redness Cardiovascular : No Chest Pain, No SOB, NoEdema Respiratory : No Cough, No Sputum, No Wheezing Gastrointestinal : Positive Nausea, Positive Vomiting, no Diarrhea, positive abdominal Pain, No Hematochezia, No Melena Genitourinary : No Dysuria, No Urinary Frequency, No Hematuria, No Urgency Musculoskeletal : No joint pain, No Myalgias, No Joint Swelling Skin : No Skin Lesions, No rash Neuro : pos Weakness, No Numbness, No Dizziness, No Headache Psych : No Anxiety/Panic, No Depression All other systems reviewed and are negative. Gastrointestinal: Gastrointestinal: Reports nausea PMFSH Past Medical History Attestation statement: The following information was validated with the patient. Source: old records reviewed Medical History Hyperemesis Seizure disorder during in first trimester Social History Social History Alcohol intake: never Substance Use Type: Marijuana Advance Directives: No Advance Directives Information Provided: Yes Physical Exam Vital Signs: Vital Signs: Last Vital Signs Temp 98.3 F 10/29/22 08:04 Pulse 73 10/29/22 08:04 Resp 22 H 10/29/22 08:04 BP 105/53 L 10/29/22 08:04 Pulse Ox 95 10/29/22 08:04 O2 Del Method Room Air 10/29/22 08:04 BMI result Body Mass Index 41.5 Appearance: Alert. Oriented X3. No acute distress. Eyes: Pupils equal, round and reactive to light. ENT: Pharynx mild dry MM Neck: Normal inspection. Neck supple. CVS: Normal heart rate and rhythm. Pulses normal. Respiratory: No respiratory distress. Breath sounds normal. Abdomen: Soft and nontender. Skin: Skin warm and dry. Normal skin color. Normal skin turgor. Extremities: No lower extremity edema. No calf ttp Neuro: Oriented X 3. No motor deficit. No sensory deficit. Course Course Course Narrative: feels better asymptomatic bacturia stable for DC Medications Administered Discontinued Medications Generic Name Dose Route Start Last Admin Trade Name Freq PRN Reason Stop Dose Admin Diphenhydramine HCl 25 mg 10/29/22 08:34 10/29/22 08:51 Diphenhydramine Hcl 50 Mg/Ml Vial IVPUSH 10/29/22 08:35 25 mg ONCE ONE Administration Sodium Chloride 1,000 mls @ 999 mls/hr 10/29/22 08:15 10/29/22 08:26 Ns IV 10/29/22 09:15 999 mls/hr .Q1H1M DEVANTE Administration Levetiracetam 250 mg/ Sodium 102.5 mls @ 410 mls/hr 10/29/22 08:34 10/29/22 08:51 Chloride IV 10/29/22 08:48 410 mls/hr ONCE ONE Administration Sodium Chloride 1,000 mls @ 999 mls/hr 10/29/22 08:45 10/29/22 08:51 Ns IV 10/29/22 09:45 999 mls/hr .Q1H1M DEVANTE Administration Ondansetron HCl 4 mg 10/29/22 08:16 10/29/22 08:25 Ondansetron Hcl 4 Mg/2 Ml Vial IVPUSH 10/29/22 08:17 4 mg ONCE ONE Administration Medical Decision Making Medical Decision Making [facility] Narrative: 32 yo female , seizure disorder hx of hyperemesis on last failed B6 and doxylamine does not have OB yet will need to refer her here without pain or OB complaints but vomiting x 3 days. at this time labs, IVF x 2L, nausea medications and Rx once she is tolerating PO. she will get UA to look for UTI as well. Differential Diagnosis Differential Diagnoses: The differential diagnosis associated with the presentation includes hyperemesis, UTI, THC syndrome Admission/Observation Consideration of admission/observation: Escalation of care including admission/observation considered tolerating PO labs stable can be managed as outpatient Lab Data [facility] Lab Attestation statement: I reviewed the patient's lab results. 10/29/22 08:16 10/29/22 08:16 Labs: Lab Results 10/29/22 10/29/22 Range/Units 08:16 11:36 WBC 8.1 (4.8-10.8) X10*3/uL RBC 4.61 (4.20-5.50) X10*6/uL Hgb 12.6 (12.0-16.0) g/dl Hct 37.6 (37.0-47.0) % MCV 81.6 (80.0-98.0) fL MCH 27.3 (27.0-33.0) pg MCHC 33.5 (31.0-35.0) g/dl RDW 14.2 (11.0-16.0) % Plt Count 378 (160-400) X10*3/uL MPV 8.6 L (9.4-12.3) fL Immature Gran % (Auto) 0.4 (0.0-0.4) % Neut % (Auto) 68.7 (45-73) % Lymph % (Auto) 20.7 (20-40) % [place] % (Auto) 5.4 (2-11) % Eos % (Auto) 4.4 H (0-4) % Baso % (Auto) 0.4 (0-2) % Lymph # (Auto) 1.7 (1.2-4.9) X10*3/uL [place] # (Auto) 0.4 (0.1-1.2) X10*3/uL Eos # (Auto) 0.4 (0.0-0.4) X10*3/uL Baso # (Auto) 0.0 (0.0-0.2) X10*3/uL Abs Immat Gran (auto) 0.03 (0.00-0.03) X10*3/uL Absolute Neuts (auto) 5.6 (2.0-8.3) x10*3/uL Absolute Nucleated RBC 0.000 (0.0-0.012) X10*3/uL Nucleated RBC % (auto) 0.0 (0.0-0.2) /100WBC Sodium 135 (135-145) mmol/L Potassium 3.7 (3.3-5.1) mmol/L Chloride 108 (96-108) mmol/L Carbon Dioxide 22 (22-29) mmol/L Anion Gap 9 L (12-20) BUN 8 L (9-16) mg/dL Creatinine 0.62 (0.5-1.4) mg/dL Estim Creat Clear Calc 147.8 Estimated GFR > 60 Random Glucose 118 H (60-115) mg/dL Calcium 9.0 (8.4-10.2) mg/dL Total Bilirubin 0.4 (0.0-1.0) mg/dL AST 13 (5-31) U/L ALT 12 (0-31) U/L Alkaline Phosphatase 79 (39-117) U/L Total Protein 6.6 (6.5-8.0) g/dL Albumin 3.6 (3.5-5.0) g/dL Lipase 10 (8-78) U/L Beta HCG, Quant 78007 mIU/mL Urine Color Yellow Urine Appearance Clear Urine pH 7.0 (5.0-9.0) Ur Specific [place] 1.015 (1.005-1.025) Urine Protein Negative (Neg-Trace) mg/dL Urine Glucose (UA) Negative (Negative) mg/dL Urine Ketones 40 (Negative) mg/dL Urine Blood Negative (Negative) Urine Nitrite Negative (Negative) Ur Leukocyte Esterase Moderate (2+) H (Negative) Urine RBC 0-2 (0-2) /HPF Urine WBC 6-10 H (0-5) /HPF Ur Squamous Epith Cells 11-20 (0-2) /HPF Urine Bacteria 1+ (None Seen) Hyaline Casts 0-2 (0-2) /LPF External Record Review External record reviewed: Inpatient record Prescription Management I considered prescription management with: Antibiotic and Other (phenergan and zofran - has failed B6 and doxylamine) Discharge Plan Discharge Clinical Impression: Hyperemesis Patient Disposition: Home, Self-Care Instructions: Acute Nausea and Vomiting (ED) Additional Instructions: stay hydrated, advance your diet slowly over 48 hours. please try to call the OB listed below. return for fevers, bleeding worsening pain or any other concerns. you had bacteria in your urine when we do treat it. medications safe for the baby and you. Prescriptions: New nitrofurantoin monohyd/m-cryst [Macrobid] 100 mg capsule 100 mg PO BID 7 Days Qty: 14 0RF Rx Instructions: must administer with a meal/food promethazine 25 mg tablet 25 mg PO TID PRN (Reason: nausea and vomiting) Qty: 30 0RF No Action ondansetron 4 mg tablet,disintegrating 4 mg PO TID PRN (Reason: nausea and vomiting) 5 Days Qty: 10 0RF pyridoxine (vitamin B6) 25 mg tablet 25 mg PO TID PRN (Reason: nausea and vomiting) Qty: 20 0RF doxylamine succinate 25 mg tablet 25 mg PO BEDTIME PRN (Reason: nausea and vomiting) Qty: 14 0RF amoxicillin 500 mg capsule 500 mg PO Q8H 7 Days Qty: 21 0RF
[2022-10-29] MEDS: levETIRAcetam 250 MG in 0.9 % Sodium Chloride 100 ML 410 MG IV (08:51)
[2022-10-29] MEDS: diphenhydrAMINE HCL 50 MG/ML VIAL 25 MG IVPUSH (08:51)
[2022-10-29 11:43] LABS: Appearance Urine Clear; Color Urine Yellow; Glucose Urine UA Negative (Negative); Leukocyte Esterase Urine Moderate (2+) (Negative); Nitrite Urine Negative (Negative); Specific Gravity - Urine 1.015 (1.005-1.025); UMIC TRIGGER UACC YES; Urine Blood Negative (Negative); Urine Ketones 40 mg/dL (Negative); Urine Protein Negative (Neg-Trace)
[2022-10-29 11:45] LABS: Bacteria Urine 1+ (None Seen); Hyaline Casts Urine 0-2 /LPF (0-2); RBC Urine 0-2 /HPF (0-2); UACC Culture Trigger YES
== END 2022-10-29 12:14 | disposition home or self-care (01) ==
PROVIDERS: Emergency Provider Emergency Medicine; PCP Nurse Practitioner Family
DX: O21.0 Mild hyperemesis gravidarum (principal); Z3A.01 Less than 8 weeks gestation of pregnancy; O26.891 Other specified pregnancy related conditions, first trimester; R10.9 Unspecified abdominal pain; Z3A.00 Weeks of gestation of pregnancy not specified; Z79.899 Other long term (current) drug therapy
CPT/HCPCS: 36415; 80053; 81001; 83690; 84702; 85025; 87086; 96374; 96375; 99283; 99284; J1200; J1953; J2405

== ENCOUNTER 2022-11-01 07:12 | Emergency (ER) | payer MEDICARE, MEDICAID, SELFPAY ==
[2022-11-01 07:17] VITALS: BP 152/88; PULSE 88; O2SAT 99
[2022-11-01 07:22] VITALS: BP 130/60; PULSE 75; RESP 31; TEMP 36.7; O2SAT 99; BMI 34.5
[2022-11-01] MEDS: Prochlorperazine Edisylate 10 MG/2 ML VIAL IVPUSH (07:39)
[2022-11-01] MEDS: diphenhydrAMINE HCL 50 MG/ML VIAL 25 MG IVPUSH (07:40)
[2022-11-01] MEDS: 0.9 % Sodium Chloride 1,000 ML 999 ML IV (07:40)
[2022-11-01] MEDS: levETIRAcetam in NaCl (iso-os) 500 MG/100 ML PIGGYBACK 400 MG IV (07:40)
--- NOTE | 2022-11-01 07:47 | ED.SEIZURE ---
HPI - Seizure General Chief Complaint: Seizure Stated Complaint: NAUSEA/VOMITING,H/O SZ, 3MO Time Seen by Provider: 11/01/22 07:31 Source: patient and EMS Mode of arrival: EMS Limitations: no limitations History of Present Illness HPI Narrative: On at 13 weeks gestation past medical history significant for cannabis hyperemesis dehydration, hyperemesis gravidarum during seizure disorder presents emergency room after feeling very anxious episode of emesis at home patient is trying Zofran at home already for her vomiting she was seen here 3 days ago for the same was given some medications 2 L fluid went home today she states she had a seizure. MD complaint: seizure Related Data Previous Rx's Medication Instructions Recorded ondansetron 4 mg disintegrating 4 mg PO TID PRN nausea and 10/01/22 tablet vomiting 5 days #10 tabs amoxicillin 500 mg capsule 500 mg PO Q8H 7 days #21 caps 10/05/22 doxylamine succinate 25 mg tablet 25 mg PO BEDTIME PRN nausea and 10/05/22 vomiting #14 tabs pyridoxine (vitamin B6) 25 mg 25 mg PO TID PRN nausea and 10/05/22 tablet vomiting #20 tabs nitrofurantoin 100 mg PO BID 7 days #14 caps 10/29/22 monohydrate/macrocrystals 100 mg capsule (Macrobid) promethazine 25 mg tablet 25 mg PO TID PRN nausea and 10/29/22 vomiting #30 tabs Allergies Allergy/AdvReac Type Severity Reaction Status Date / Time No Known Allergies Allergy Verified 10/29/22 08:08 Review of Systems Review of Systems: Review of systems: General: Patient denies any fever chills recent illness or falls Musculoskeletal: Denies back pain or body aches or other injuries HEENT: denies headache, runny nose, ear pain Respiratory: denies shortness of breath, cough Cardiovascular: no chest pain or palpitations : denies dysuria, frequency Abdomen: nausea vomiting denies abdominal pain Extremities: no swelling, no pain Skin: no diaphoresis Yes all other systems are reviewed and are negative [facility] Past Medical History Medical History Hyperemesis Seizure disorder during in first trimester Social History Social History Alcohol intake: never Substance Use Type: Marijuana Advance Directives: No Advance Directives Information Provided: No Physical Exam Vital Signs: Vital Signs: Last Vital Signs Temp 98.1 F 11/01/22 07:22 Pulse 75 11/01/22 07:22 Resp 31 H 11/01/22 07:22 BP 130/60 11/01/22 07:22 Pulse Ox 99 11/01/22 07:22 O2 Del Method Room Air 11/01/22 07:22 BMI result Body Mass Index 34.5 General: Very anxious rocking in the bed holding her emesis basin otherwise appears Well-appearing well-nourished in no signs of distress HEENT: Normocephalic atraumatic Neck: No signs of JVD, no masses no tenderness or lymphadenopathy Cardiovascular: Regular rate and rhythm Respiratory: Clear to auscultation bilaterally Abdomen: Soft nontender no masses Extremities: Normal pedal pulses no signs of edema Skin: Dry warm no rashes Back: No tenderness full ROM Course Course Course Narrative: 926 Labs are all normal she is still rocking in the bed. She states she is in a group home at this time. Still has not called to establish with OB no other concerns on exam. I will give zofran and discharge the patient. Medications Administered Discontinued Medications Generic Name Dose Route Start Last Admin Trade Name Radha PRN Reason Stop Dose Admin Diphenhydramine HCl 25 mg 11/01/22 07:28 11/01/22 07:40 Diphenhydramine Hcl 50 Mg/Ml Vial IVPUSH 11/01/22 07:29 25 mg ONCE ONE Administration Sodium Chloride 1,000 mls @ 999 mls/hr 11/01/22 07:30 11/01/22 07:40 Ns IV 11/01/22 08:30 999 mls/hr .Q1H1M DEVANTE Administration Levetiracetam 500 mg in 100 mls @ 400 mls/hr 11/01/22 07:31 11/01/22 08:31 Keppra IV 11/01/22 07:45 Infused ONCE ONE Infusion Lorazepam 1 mg 11/01/22 07:54 11/01/22 08:24 Lorazepam 2 Mg/Ml Vial IVPUSH 11/01/22 07:55 1 mg ONCE ONE Administration Prochlorperazine Edisylate 10 mg 11/01/22 07:28 11/01/22 07:39 Prochlorperazine Edisylate 10 Mg/2 Ml Vial IVPUSH 11/01/22 07:29 10 mg ONCE ONE Administration Medical Decision Making Medical Decision Making [facility] Narrative: Seizure after medication noncompliance due to recurrent vomiting concern for cannabis use dehydration was here for the same 3 days ago I will give patient 2 L fluid Compazine Benadryl and fluids she is requesting Zofran she would has Zofran at home she is also asking find something for anxiety to explain his home which the safe during . 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 1 dose here in the emergency department is likely safe. Jesi is requesting the medication. I will give one dose at this time. Differential Diagnosis Differential Diagnoses: The differential diagnosis associated with the presentation includes Seizure likely due to noncompliance of medications patient had similar problem with previous hyperemesis cannabis use Lab Data [facility] Lab Attestation statement: I reviewed the patient's lab results. 11/01/22 08:03 11/01/22 08:03 Labs: Lab Results 11/01/22 Range/Units 08:03 WBC 7.8 (4.8-10.8) X10*3/uL RBC 4.77 (4.20-5.50) X10*6/uL Hgb 12.8 (12.0-16.0) g/dl Hct 38.5 (37.0-47.0) % MCV 80.7 (80.0-98.0) fL MCH 26.8 L (27.0-33.0) pg MCHC 33.2 (31.0-35.0) g/dl RDW 14.2 (11.0-16.0) % Plt Count 357 (160-400) X10*3/uL MPV 8.5 L (9.4-12.3) fL Immature Gran % (Auto) 0.5 H (0.0-0.4) % Neut % (Auto) 70.2 (45-73) % Lymph % (Auto) 20.7 (20-40) % [place] % (Auto) 4.5 (2-11) % Eos % (Auto) 3.6 (0-4) % Baso % (Auto) 0.5 (0-2) % Lymph # (Auto) 1.6 (1.2-4.9) X10*3/uL [place] # (Auto) 0.4 (0.1-1.2) X10*3/uL Eos # (Auto) 0.3 (0.0-0.4) X10*3/uL Baso # (Auto) 0.0 (0.0-0.2) X10*3/uL Abs Immat Gran (auto) 0.04 H (0.00-0.03) X10*3/uL Absolute Neuts (auto) 5.5 (2.0-8.3) x10*3/uL Absolute Nucleated RBC 0.000 (0.0-0.012) X10*3/uL Nucleated RBC % (auto) 0.0 (0.0-0.2) /100WBC Sodium 137 (135-145) mmol/L Potassium 3.8 (3.3-5.1) mmol/L Chloride 109 H (96-108) mmol/L Carbon Dioxide 20 L (22-29) mmol/L Anion Gap 12 (12-20) BUN 10 (9-16) mg/dL Creatinine 0.62 (0.5-1.4) mg/dL Estim Creat Clear Calc 159.7 Estimated GFR > 60 Random Glucose 120 H (60-115) mg/dL Calcium 9.2 (8.4-10.2) mg/dL Total Bilirubin 0.2 (0.0-1.0) mg/dL Direct Bilirubin < 0.2 (0.0-0.5) mg/dL AST 13 (5-31) U/L ALT 17 (0-31) U/L Alkaline Phosphatase 72 (39-117) U/L Total Protein 7.0 (6.5-8.0) g/dL Albumin 3.8 (3.5-5.0) g/dL Lipase 14 (8-78) U/L Discharge Plan Discharge Clinical Impression: Vomiting, Currently , Anxiety Patient Disposition: Home, Self-Care Instructions: Anxiety (ED), (ED), Nausea and Vomiting in (ED) Additional Instructions: You wer seen for vomiting. Please call to follow up. Prescriptions: No Action nitrofurantoin monohyd/m-cryst [Macrobid] 100 mg capsule 100 mg PO BID 7 Days Qty: 14 0RF Rx Instructions: must administer with a meal/food promethazine 25 mg tablet 25 mg PO TID PRN (Reason: nausea and vomiting) Qty: 30 0RF ondansetron 4 mg tablet,disintegrating 4 mg PO TID PRN (Reason: nausea and vomiting) 5 Days Qty: 10 0RF pyridoxine (vitamin B6) 25 mg tablet 25 mg PO TID PRN (Reason: nausea and vomiting) Qty: 20 0RF doxylamine succinate 25 mg tablet 25 mg PO BEDTIME PRN (Reason: nausea and vomiting) Qty: 14 0RF amoxicillin 500 mg capsule 500 mg PO Q8H 7 Days Qty: 21 0RF Referrals: Oisto Mcrae MD [Physician] - (You were seen for recurrent vomiting You had normal labs and vitals Please call to follow up. )
[2022-11-01 08:07] LABS: MANUAL DIFF FLAG NO
[2022-11-01 08:08] LABS: Basophils Percent Auto 0.5 % (0-2); Eosinophils Absolute Auto 0.3 X10*3/uL (0.0-0.4); Eosinophils Percent Auto 3.6 % (0-4); Hematocrit 38.5 % (37.0-47.0); Hemoglobin 12.8 g/dl (12.0-16.0); Imm Gran Abs Auto 0.04 X10*3/uL (0.00-0.03); Imm Gran Pct Auto 0.5 % (0.0-0.4); Lymphocytes Absolute Auto 1.6 X10*3/uL (1.2-4.9); Lymphocytes Percent Auto 20.7 % (20-40); Mean Corpuscular HGB Conc 33.2 g/dl (31.0-35.0); Mean Corpuscular Hemoglobin 26.8 pg (27.0-33.0); Mean Corpuscular Volume 80.7 fL (80.0-98.0); Mean Platelet Volume 8.5 fL (9.4-12.3); Monocytes Absolute Auto 0.4 X10*3/uL (0.1-1.2); Monocytes Percent Auto 4.5 % (2-11); Neutrophils Absolute Auto 5.5 x10*3/uL (2.0-8.3); Neutrophils Percent Auto 70.2 % (45-73); Platelet Count 357 X10*3/uL (160-400); Red Blood Count 4.77 X10*6/uL (4.20-5.50); Red Cell Distribution Width 14.2 % (11.0-16.0); White Blood Count 7.8 X10*3/uL (4.8-10.8)
[2022-11-01 08:24] LABS: Alanine Aminotransferase 17 U/L (0-31); Albumin Level 3.8 g/dL (3.5-5.0); Alkaline Phosphatase 72 U/L (39-117); Anion Gap 12 (12-20); Aspartate Amino Transferase 13 U/L (5-31); Bilirubin Direct < 0.2 mg/dL (0.0-0.5); Bilirubin Total 0.2 mg/dL (0.0-1.0); Blood Urea Nitrogen 10 mg/dL (9-16); Calcium 9.2 mg/dL (8.4-10.2); Carbon Dioxide 20 mmol/L (22-29); Chloride 109 mmol/L (96-108); Creatinine Clr Calc Pharmacy 159.7; Estimated Glomerular Filt Rate > 60; Glucose Random 120 mg/dL (60-115); Lipase 14 U/L (8-78); Potassium 3.8 mmol/L (3.3-5.1); Sodium 137 mmol/L (135-145)
[2022-11-01] MEDS: LORazepam 2 MG/ML VIAL 1 MG IVPUSH (08:24)
[2022-11-01] MEDS: ondansetron HCL 4 MG/2 ML VIAL IVPUSH (10:24)
--- NOTE | 2022-11-01 10:24 | PC.NURSE ---
pt continues to have several episodes of incontinence on the stretcher, she is moving and rocking about the stretcher also
--- NOTE | 2022-11-01 11:27 | PC.NURSE ---
patient called and [facility] for discharge, got herself dressed and ambulated off of the unit with a steady gait
== END 2022-11-01 11:28 | disposition home or self-care (01) ==
PROVIDERS: Emergency Provider Student in an Organized Health Care Education/Training Program
DX: O21.0 Mild hyperemesis gravidarum (principal); F41.1 Generalized anxiety disorder; F43.0 Acute stress reaction; Z3A.13 13 weeks gestation of pregnancy; Z79.899 Other long term (current) drug therapy
CPT/HCPCS: 36415; 80048; 80076; 83690; 85025; 96365; 96375; 99284; J1200; J1953; J2060; J2405

== ENCOUNTER 2022-11-02 20:58 | Emergency (ER) | payer MEDICARE, MEDICAID, SELFPAY ==
[2022-11-02 21:05] VITALS: BP 108/47; BP 158/70; PULSE 90; PULSE 92; RESP 18; TEMP 36.9; O2SAT 98; BMI 39.3
[2022-11-02 21:27] LABS: MANUAL DIFF FLAG NO
[2022-11-02 21:29] LABS: Basophils Percent Auto 0.3 % (0-2); Eosinophils Percent Auto 0.3 % (0-4); Hemoglobin 12.1 g/dl (12.0-16.0); Imm Gran Abs Auto 0.05 X10*3/uL (0.00-0.03); Imm Gran Pct Auto 0.4 % (0.0-0.4); Lymphocytes Percent Auto 16.8 % (20-40); Mean Corpuscular HGB Conc 33.6 g/dl (31.0-35.0); Mean Corpuscular Hemoglobin 27.3 pg (27.0-33.0); Mean Corpuscular Volume 81.3 fL (80.0-98.0); Mean Platelet Volume 8.5 fL (9.4-12.3); Monocytes Absolute Auto 0.7 X10*3/uL (0.1-1.2); Monocytes Percent Auto 5.8 % (2-11); Neutrophils Absolute Auto 9.2 x10*3/uL (2.0-8.3); Neutrophils Percent Auto 76.4 % (45-73); Platelet Count 363 X10*3/uL (160-400); Red Blood Count 4.43 X10*6/uL (4.20-5.50); Red Cell Distribution Width 14.4 % (11.0-16.0)
[2022-11-02 21:31] LABS: Appearance Urine Cloudy; Color Urine Yellow; Glucose Urine UA Negative (Negative); Leukocyte Esterase Urine Trace (Negative); Nitrite Urine Negative (Negative); PH 5.5 (5.0-9.0); Specific Gravity - Urine 1.025 (1.005-1.025); UMIC TRIGGER UACC YES; Urine Blood Negative (Negative); Urine Ketones 80 mg/dL (Negative); Urine Protein Trace mg/dL (Neg-Trace)
[2022-11-02 21:43] LABS: Alanine Aminotransferase 32 U/L (0-31); Albumin Level 3.8 g/dL (3.5-5.0); Alkaline Phosphatase 73 U/L (39-117); Anion Gap 15 (12-20); Aspartate Amino Transferase 48 U/L (5-31); Bilirubin Total 0.5 mg/dL (0.0-1.0); Blood Urea Nitrogen 8 mg/dL (9-16); Calcium 9.1 mg/dL (8.4-10.2); Carbon Dioxide 18 mmol/L (22-29); Chloride 106 mmol/L (96-108); Creatinine Clr Calc Pharmacy 153.2; Estimated Glomerular Filt Rate > 60; Glucose Random 107 mg/dL (60-115); Potassium 3.4 mmol/L (3.3-5.1); Sodium 136 mmol/L (135-145); Total Protein 6.9 g/dL (6.5-8.0)
[2022-11-02 21:56] VITALS: BP 96/51; PULSE 77; RESP 18; TEMP 37.4; O2SAT 98
--- NOTE | 2022-11-02 21:59 | MHC.EDTECH ---
Patient was changed into hospital attire,vitals were completed blood pressure was low at 96/51 RN Brook made aware, call ananda ayala.
--- NOTE | 2022-11-02 22:00 | ED_ITS ---
HPI - General Adult General Chief complaint: General Medical Stated complaint: nausea, vomiting, is Time Seen by Provider: 11/02/22 21:32 Source: patient, EMS and old records reviewed Mode of arrival: EMS Limitations: no limitations History of Present Illness HPI narrative: 32 yo female hx of seizures on keppra hx of hyperemesis still not established with OB yet comes in with c/o anxiety, poor PO intake, vomiting and her partner told her she had two shaking episodes the patient tells me she is taking her medications and she thinks these were stress reactions. The patient denies trauma or injury. She states this is terrible and she feels weak and dehydrated all the time. She is about 3.5 months . She has had multiple ED visits for same. MD complaint: nausea, vomiting, anxiety Onset (ago): week(s) (several weeks) Location: abdomen Radiation: non-radiation Severity: moderate Pain Consistency: intermittent Relieving factors: medication Exacerbating factors: eating Associated symptoms: loss of appetite, malaise and nausea/vomiting Treatments prior to arrival: other (states she tries to take all of her medications) Related Data Previous Rx's Medication Instructions Recorded ondansetron 4 mg disintegrating 4 mg PO TID PRN nausea and 10/01/22 tablet vomiting 5 days #10 tabs amoxicillin 500 mg capsule 500 mg PO Q8H 7 days #21 caps 10/05/22 doxylamine succinate 25 mg tablet 25 mg PO BEDTIME PRN nausea and 10/05/22 vomiting #14 tabs pyridoxine (vitamin B6) 25 mg 25 mg PO TID PRN nausea and 10/05/22 tablet vomiting #20 tabs nitrofurantoin 100 mg PO BID 7 days #14 caps 10/29/22 monohydrate/macrocrystals 100 mg capsule (Macrobid) promethazine 25 mg tablet 25 mg PO TID PRN nausea and 10/29/22 vomiting #30 tabs Allergies Allergy/AdvReac Type Severity Reaction Status Date / Time No Known Allergies Allergy Verified 10/29/22 08:08 Review of Systems 2 Review of Systems: Constitutional : No Weight loss, No Fever, No Chills ENT/Mouth : No sore throat, No Rhinorrhea Eyes: No Swelling, No Redness Cardiovascular : No Chest Pain, No SOB, NoEdema Respiratory : No Cough, No Sputum, No Wheezing Gastrointestinal : Positive Nausea, Positive Vomiting, no Diarrhea, positive abdominal Pain, No Hematochezia, No Melena Genitourinary : No Dysuria, No Urinary Frequency, No Hematuria, No Urgency Musculoskeletal : No joint pain, No Myalgias, No Joint Swelling Skin : No Skin Lesions, No rash Neuro : No Weakness, No Numbness, No Dizziness, No Headache Psych : pos Anxiety/Panic, No Depression Heme/Lymph: No Bruising, No Lymphadenopathy Endocrine : No Polyuria, No Polydipsia All other systems reviewed and are negative. [facility] Past Medical History Attestation statement: The following information was validated with the patient. Medical History Hyperemesis Seizure disorder during in first trimester Social History Social History (Updated 11/02/22 @ 22:14 by Gail Shook DO) Alcohol intake: never Patient Tobacco Use Status: Tobacco use Unknown Substance Use Type: Marijuana Advance Directives: No Advance Directives Information Provided: No Physical Exam ED Vital Signs: Vital Signs - 24 hr 11/02/22 21:05 11/02/22 21:56 11/02/22 22:02 Temperature 98.5 F 99.3 F Pulse Rate 92 77 83 Respiratory Rate 18 18 18 Blood Pressure 108/47 L 96/51 L 106/61 Pulse Oximetry 98 98 98 Oxygen Delivery Method Room Air Room Air Room Air 11/02/22 23:40 Temperature 98.3 F Pulse Rate 84 Respiratory Rate 18 Blood Pressure 109/61 Pulse Oximetry 98 Oxygen Delivery Method Room Air BMI result Body Mass Index 39.3 Appearance: Alert. Oriented X3. No acute distress. Eyes: Pupils equal, round and reactive to light. ENT: Pharynx midly dry MM Neck: Normal inspection. Neck supple. CVS: Normal heart rate and rhythm. Pulses normal. Respiratory: No respiratory distress. Breath sounds normal. Abdomen: Soft and nontender. Skin: Skin warm and dry. Normal skin color. Normal skin turgor. Extremities: No lower extremity edema. No calf ttp Neuro: Oriented X 3. No motor deficit. No sensory deficit. Course Course Course Narrative: tolerated PO stable for DC Medications Administered Discontinued Medications Generic Name Dose Route Start Last Admin Trade Name Freq PRN Reason Stop Dose Admin Diphenhydramine HCl 25 mg 11/02/22 21:52 11/02/22 22:14 Diphenhydramine Hcl 50 Mg/Ml Vial IVPUSH 11/02/22 21:53 25 mg ONCE ONE Administration Sodium Chloride 1,000 mls @ 999 mls/hr 11/02/22 22:00 11/02/22 23:48 Ns IV 11/02/22 23:00 Infused .Q1H1M DEVANTE Infusion Ondansetron HCl 4 mg 11/02/22 21:52 11/02/22 22:14 Ondansetron Hcl 4 Mg/2 Ml Vial IVPUSH 11/02/22 21:53 4 mg ONCE ONE Administration Medical Decision Making Medical Decision Making MDM Narrative: 32 yo female hx of seizures on keppra hx of hyperemesis here with c/o repeated episodes of n/v and feelings of anxiety. Notes possible shaking episodes but compliant with keppra taking her medications and the patient states she feels they were anxiety induced. At this time will need basic labs, UA, IVF, D5NS drip, reassess and when feeling better will PO challenge. Differential Diagnosis Differential Diagnoses: The differential diagnosis associated with the presentation includes hyperemesis, dehydration, anxiety, poor social support Admission/Observation Consideration of admission/observation: Escalation of care including admission/observation considered feels better, tolerating PO stable for DC Lab Data [facility] Lab Attestation statement: I reviewed the patient's lab results. 11/02/22 21:22 11/02/22 21:22 Labs: Lab Results 11/02/22 Range/Units 21:22 WBC 12.0 H (4.8-10.8) X10*3/uL RBC 4.43 (4.20-5.50) X10*6/uL Hgb 12.1 (12.0-16.0) g/dl Hct 36.0 L (37.0-47.0) % MCV 81.3 (80.0-98.0) fL MCH 27.3 (27.0-33.0) pg MCHC 33.6 (31.0-35.0) g/dl RDW 14.4 (11.0-16.0) % Plt Count 363 (160-400) X10*3/uL MPV 8.5 L (9.4-12.3) fL Immature Gran % (Auto) 0.4 (0.0-0.4) % Neut % (Auto) 76.4 H (45-73) % Lymph % (Auto) 16.8 L (20-40) % Sharkey % (Auto) 5.8 (2-11) % Eos % (Auto) 0.3 (0-4) % Baso % (Auto) 0.3 (0-2) % Lymph # (Auto) 2.0 (1.2-4.9) X10*3/uL Sharkey # (Auto) 0.7 (0.1-1.2) X10*3/uL Eos # (Auto) 0.0 (0.0-0.4) X10*3/uL Baso # (Auto) 0.0 (0.0-0.2) X10*3/uL Abs Immat Gran (auto) 0.05 H (0.00-0.03) X10*3/uL Absolute Neuts (auto) 9.2 H (2.0-8.3) x10*3/uL Absolute Nucleated RBC 0.000 (0.0-0.012) X10*3/uL Nucleated RBC % (auto) 0.0 (0.0-0.2) /100WBC Sodium 136 (135-145) mmol/L Potassium 3.4 (3.3-5.1) mmol/L Chloride 106 (96-108) mmol/L Carbon Dioxide 18 L (22-29) mmol/L Anion Gap 15 (12-20) BUN 8 L (9-16) mg/dL Creatinine 0.58 (0.5-1.4) mg/dL Estim Creat Clear Calc 153.2 Estimated GFR > 60 Random Glucose 107 (60-115) mg/dL Calcium 9.1 (8.4-10.2) mg/dL Total Bilirubin 0.5 (0.0-1.0) mg/dL AST 48 H (5-31) U/L ALT 32 H (0-31) U/L Alkaline Phosphatase 73 (39-117) U/L Total Protein 6.9 (6.5-8.0) g/dL Albumin 3.8 (3.5-5.0) g/dL Urine Color Yellow Urine Appearance Cloudy Urine pH 5.5 (5.0-9.0) Ur Specific [place] 1.025 (1.005-1.025) Urine Protein Trace (Neg-Trace) mg/dL Urine Glucose (UA) Negative (Negative) mg/dL Urine Ketones 80 (Negative) mg/dL Urine Blood Negative (Negative) Urine Nitrite Negative (Negative) Ur Leukocyte Esterase Trace H (Negative) Urine RBC 0-2 (0-2) /HPF Urine WBC 0-5 (0-5) /HPF Ur Squamous Epith Cells 6-10 (0-2) /HPF Urine Bacteria 1+ (None Seen) Hyaline Casts 0-2 (0-2) /LPF External Record Review External record reviewed: Inpatient record Tests considered The following testing was considered but not selected: US of RUQ given LFTs but no pain and has hx of GB removal Prescription Management I considered prescription management with: Other (has medications at home already) Discharge Plan Discharge Clinical Impression: Hyperemesis gravidarum Patient Disposition: Home, Self-Care Instructions: Hyperemesis Gravidarum (ED) Additional Instructions: take your medications. please call OB you need to get established at this point. return for worsening symptoms, pain, bleeding, inability to tolerate PO your liver enzymes were mildlly elevated likely due to vomiting/dehydration they should be rechecked in a couple of days. Prescriptions: No Action nitrofurantoin monohyd/m-cryst [Macrobid] 100 mg capsule 100 mg PO BID 7 Days Qty: 14 0RF Rx Instructions: must administer with a meal/food promethazine 25 mg tablet 25 mg PO TID PRN (Reason: nausea and vomiting) Qty: 30 0RF ondansetron 4 mg tablet,disintegrating 4 mg PO TID PRN (Reason: nausea and vomiting) 5 Days Qty: 10 0RF pyridoxine (vitamin B6) 25 mg tablet 25 mg PO TID PRN (Reason: nausea and vomiting) Qty: 20 0RF doxylamine succinate 25 mg tablet 25 mg PO BEDTIME PRN (Reason: nausea and vomiting) Qty: 14 0RF amoxicillin 500 mg capsule 500 mg PO Q8H 7 Days Qty: 21 0RF
[2022-11-02 22:02] VITALS: BP 106/61; PULSE 83; RESP 18; O2SAT 98
[2022-11-02] MEDS: diphenhydrAMINE HCL 50 MG/ML VIAL 25 MG IVPUSH (22:14)
[2022-11-02] MEDS: ondansetron HCL 4 MG/2 ML VIAL IVPUSH (22:14)
[2022-11-02] MEDS: 0.9 % Sodium Chloride 1,000 ML 999 ML IV (22:15)
[2022-11-02 22:22] LABS: Bacteria Urine 1+ (None Seen); Hyaline Casts Urine 0-2 /LPF (0-2); RBC Urine 0-2 /HPF (0-2); WBC Urine 0-5 /HPF (0-5)
[2022-11-02 23:40] VITALS: BP 109/61; PULSE 84; RESP 18; TEMP 36.8; O2SAT 98
--- NOTE | 2022-11-02 23:41 | MHC.EDTECH ---
Hourly rounds and vitals completed. At the request of the doctor patient is to be PO challenged, Patient was giving a can of randi dee and crackers.
== END 2022-11-03 00:20 | disposition home or self-care (01) ==
PROVIDERS: Emergency Provider Emergency Medicine
DX: O21.0 Mild hyperemesis gravidarum (principal); Z3A.00 Weeks of gestation of pregnancy not specified
CPT/HCPCS: 36415; 80053; 81001; 85025; 96361; 96374; 96375; 99284; J1200; J2405